=== PATIENT | male | born 1980 | race Caucasian/White ===

== ENCOUNTER 2018-11-29 11:47 | Emergency (ER) | payer MEDICAID ==
[~2018-11-29] VITALS: Ht 175.3 cm; Wt 81.6 kg
[2018-11-29 11:52] VITALS: Ht 175.3 cm; Wt 81.6 kg
[2018-11-29 13:05] LABS: BASOPHIL % 0.3 % (0-2); PLATELET COUNT 230 x10^3mcL (130-400); RED CELL DISTRIBUTION WIDTH 13.5 % (11.5-14.5)
[2018-11-29 13:14] LABS: CALCIUM 8.7 mg/dL (8.5-10.1); CHLORIDE SERUM 106 mmol/L (98-107); CREATININE SERUM 1.1 mg/dL (0.7-1.3); GFR1 > 60 mL/min; GLUCOSE SERUM 86 mg/dL (74-106); POTASSIUM SERUM 3.7 mmol/L (3.5-5.1); SODIUM SERUM 143 mmol/L (136-145)
[2018-11-29 13:18] LABS: ALBUMIN 3.8 g/dL (3.4-5.0); ALKALINE PHOSPHATASE 105 U/L (46-116); ALT/SGPT 27 U/L (16-63); AST/SGOT 29 U/L (15-37); BILIRUBIN TOTAL 0.83 mg/dL (0.20-1.00)
[2018-11-29 15:01] LABS: UA SPECIFIC GRAVITY >=1.030 (1.005-1.035); microscopic required? YES; urine erythrocyte TRACE (NEGATIVE)
[2018-11-29 15:50] LABS: AMPHETAMINE QUAL UR POSITIVE (See below)
[2018-11-30 00:50] VITALS: BP 103/61
== END 2018-11-30 00:50 | disposition home or self-care (01) ==
LOC: EDBD 11:47 → ED 11:47
PROVIDERS: Emergency Medicine
DX: F22 Delusional disorders (principal); F17.210 Nicotine dependence, cigarettes, uncomplicated; F15.10 Other stimulant abuse, uncomplicated; F12.10 Cannabis abuse, uncomplicated; Z71.6 Tobacco abuse counseling; Z98.890 Other specified postprocedural states
CPT/HCPCS: 36415; 99406; G0480; J1630; J2060

== ENCOUNTER 2019-03-05 12:03 | Emergency (ER) | payer OTHER ==
[2019-03-05 12:14] VITALS: Ht 177.8 cm
[2019-03-05 12:21] LABS: BASOPHIL % 0.6 % (0-2); PLATELET COUNT 231 x10^3mcL (130-400); RED CELL DISTRIBUTION WIDTH 13.2 % (11.5-14.5)
[2019-03-05 12:24] VITALS: BP 143/97
[2019-03-05 12:51] LABS: CALCIUM 8.4 mg/dL (8.5-10.1); CARBON DIOXIDE 28.9 mmol/L (21-32); CHLORIDE SERUM 105 mmol/L (98-107); GFR1 > 60 mL/min; GLUCOSE SERUM 108 mg/dL (74-106); POTASSIUM SERUM 3.5 mmol/L (3.5-5.1); SODIUM SERUM 140 mmol/L (136-145)
[2019-03-05 12:58] LABS: ALBUMIN 3.7 g/dL (3.4-5.0); ALKALINE PHOSPHATASE 107 U/L (46-116); ALT/SGPT 28 U/L (16-63); AST/SGOT 24 U/L (15-37); BILIRUBIN TOTAL 0.91 mg/dL (0.20-1.00); TOTAL PROTEIN, SERUM 6.5 g/dL (6.4-8.2)
== END 2019-03-05 14:23 | disposition left against medical advice (07) ==
LOC: ED 12:03
PROVIDERS: Emergency Medicine
DX: R41.82 Altered mental status, unspecified (principal); F12.90 Cannabis use, unspecified, uncomplicated
CPT/HCPCS: 36415; G0480

== ENCOUNTER 2020-03-25 13:49 | Emergency (ER) | payer MEDICAID ==
[~2020-03-25] VITALS: Ht 180.3 cm; Wt 74.8 kg
[2020-03-25 14:01] VITALS: Ht 180.3 cm; Wt 74.8 kg
[2020-03-25 14:46] VITALS: BP 156/100
== END 2020-03-25 14:46 | disposition other institution (70) ==
LOC: ED 13:49
DX: H10.213 Acute toxic conjunctivitis, bilateral (principal); R03.0 Elevated blood-pressure reading, without diagnosis of hypertension; S41.031A Puncture wound without foreign body of right shoulder, initial encounter; F17.210 Nicotine dependence, cigarettes, uncomplicated; X58.XXXA Exposure to other specified factors, initial encounter; Y93.89 Activity, other specified; Y92.89 Other specified places as the place of occurrence of the external cause; Y99.8 Other external cause status
CPT/HCPCS: 90715

== ENCOUNTER 2020-03-25 13:49 | Emergency (ER) | payer OTHER | END 2020-03-25 14:46 | disposition other institution (70) | LOC: ED 13:49 | DX: Z02.89 Encounter for other administrative examinations (principal) ==

== ENCOUNTER 2020-04-04 12:17 | Emergency (ER) | payer MEDICAID ==
[~2020-04-04] VITALS: Ht 177.8 cm; Wt 77.1 kg
[2020-04-04 12:18] VITALS: Ht 177.8 cm; Wt 77.1 kg
[2020-04-04 13:22] VITALS: BP 129/81
== END 2020-04-04 13:22 | disposition other institution (70) ==
LOC: ED
DX: S60.221A Contusion of right hand, initial encounter (principal); W54.0XXA Bitten by dog, initial encounter; Y93.02 Activity, running; Y92.89 Other specified places as the place of occurrence of the external cause; Y99.8 Other external cause status
CPT/HCPCS: 90715

== ENCOUNTER 2020-04-04 12:17 | Emergency (ER) | payer OTHER | END 2020-04-04 13:22 | disposition other institution (70) | LOC: ED 12:17 | DX: Z02.89 Encounter for other administrative examinations (principal) ==

== ENCOUNTER 2020-07-29 02:37 | Emergency (ER) | payer OTHER ==
[~2020-07-29] VITALS: Ht 182.9 cm; Wt 79.4 kg
[2020-07-29 02:42] VITALS: BP 131/83; Ht 182.9 cm; Wt 79.4 kg
== END 2020-07-29 03:09 | disposition other institution (70) ==
LOC: ED 02:37
DX: Z02.89 Encounter for other administrative examinations (principal)